=== PATIENT | male | born 1935 | race Caucasian/White ===

== ENCOUNTER 2016-08-24 16:32 | Emergency (ER) | payer OTHER ==
[2016-08-24 19:32] LABS: APPEARANCE CLEAR (CLEAR); BILIRUBIN NEGATIVE (NEGATIVE); COLOR YELLOW (YELLOW); GLUCOSE NEGATIVE (NEGATIVE); KETONE NEGATIVE (NEGATIVE); LEUKOCYTE ESTERASE 2+ (NEGATIVE); NITRITE POSITIVE (NEGATIVE); PROTEIN TRACE mg/dL (NEGATIVE); UROBILINOGEN NORMAL (NORMAL)
[2016-08-24 19:33] LABS: BACTERIA MANY /hpf (NONE SEEN); RED CELLS - URINE 0-5 /hpf (0-5)
== END 2016-08-24 19:40 | disposition home or self-care (01) ==
LOC: D.ER 16:32
PROVIDERS: Nurse Practitioner Family
DX: T83.091A Other mechanical complication of indwelling urethral catheter, initial encounter (principal); N39.0 Urinary tract infection, site not specified

== ENCOUNTER 2017-08-01 14:35 | Emergency (ER) | payer OTHER | END 2017-08-01 16:11 | disposition home or self-care (01) | LOC: D.ER 14:35 | DX: L76.22 Postprocedural hemorrhage of skin and subcutaneous tissue following other procedure (principal); W07.XXXA Fall from chair, initial encounter; Y93.89 Activity, other specified; Y92.019 Unspecified place in single-family (private) house as the place of occurrence of the external cause; Z85.828 Personal history of other malignant neoplasm of skin ==